=== PATIENT | male | born 1955 | race Two or more races ===

== ENCOUNTER → 2024-09-19 | Outpatient (CLI) | payer OTHER, SELFPAY ==
--- NOTE | 2024-09-19 09:30 | XR_ITS ---
Examination: Esophagram standard Fluoroscopy Upright PA chest single view Upright soft tissue lateral neck single view 34 spot fluoroscopic films of the esophagus Exam date and time: September 19, 2024 1026 hours INDICATIONS: Difficulty swallowing throat surgery 6 years ago TECHNIQUE AND FINDINGS: Upright PA chest single view demonstrates normal heart size no pneumonia moderate elevation right hemidiaphragm Soft tissue lateral neck demonstrates advanced degenerative disc disease C5-C6 normal epiglottis Patient swallowed thin barium with 34 spot fluoroscopic films, fluoroscopy 0.13 minutes Primary peristaltic esophageal waves noted Numerous secondary and tertiary esophageal contractions Mild intermittent esophageal reflux No constricting esophageal lesion depicted No esophageal ulcerations Small sliding esophageal hernia IMPRESSION: Significant esophageal dysmotility Mild intermittent esophageal reflux
== END | disposition home or self-care (01) ==
PROVIDERS: PCP Nurse Practitioner Family; Referring Provider Nurse Practitioner Family; Visit Provider Nurse Practitioner Family
DX: K21.9 Gastro-esophageal reflux disease without esophagitis (principal); K22.89 Other specified disease of esophagus
CPT/HCPCS: 74220